=== PATIENT | female | born 1945 | race Asian ===

== ENCOUNTER → 2016-10-14 | Outpatient (CLI) | payer OTHER ==
[~2016-10-14] MED LIST: AMLODIPINE BES2.5 M1 PO; ANASTROZOLE1 M1 PO; ANTIVERT12.5 MG PO; ASPIR LOW81 MG PO; CIPRO500 MG PO; COZ50 PO; COZAAR100 MG PO; FUROSEMIDE20 MG PO; GEMFIBROZIL600 MG PO; GLYBURIDE AND M1 TA1 PO; GLYBURIDE5 MG PO; GOOD SENSE ASPI81 M3 PO; LAC PO; METFORMIN HCL1000 MG PO; METOPROLOL TART25 M1 PO; MULTI-VITAMINS1 TAB PO; TAMOXIFEN CITRA20 MG PO; TOP50 PO
== END | disposition home or self-care (01) ==
LOC: MA 12:54
PROC: BH00ZZZ Plain Radiography of Right Breast (ICD-10-PCS; principal; 2016-10-14)
DX: Z12.31 Encounter for screening mammogram for malignant neoplasm of breast (principal); C50.919 Malignant neoplasm of unspecified site of unspecified female breast
CPT/HCPCS: G0206

== ENCOUNTER 2016-10-20 19:49 | Inpatient (IN) | payer OTHER ==
[~2016-10-20] VITALS: Ht 152.4 cm; Wt 60.3 kg
[~2016-10-20 19:49] MED LIST changes: -AMLODIPINE BES2.5 M1 PO; -ANASTROZOLE1 M1 PO; -ASPIR LOW81 MG PO; -CIPRO500 MG PO; -GLYBURIDE5 MG PO; -LAC PO; -METFORMIN HCL1000 MG PO; -MULTI-VITAMINS1 TAB PO; -TOP50 PO
[2016-10-20 20:34] LABS: BASOPHIL % 0.4 % (0-2); PLATELET COUNT 361 x10^3mcL (130-400); RED CELL DISTRIBUTION WIDTH 12.9 % (11.5-14.5)
[2016-10-20 20:49] LABS: CARBON DIOXIDE 28.4 mmol/L (21-32); CHLORIDE SERUM 103 mmol/L (98-107); CREATININE SERUM 0.9 mg/dL (0.6-1.0); GFR1 > 60 mL/min; GLUCOSE SERUM 145 mg/dL (74-106); POTASSIUM SERUM 3.6 mmol/L (3.5-5.1); SODIUM SERUM 141 mmol/L (136-145)
[2016-10-20 20:54] LABS: ALBUMIN 4.2 g/dL (3.4-5.0); ALKALINE PHOSPHATASE 57 U/L (46-116); ALT/SGPT 24 U/L (14-59); AST/SGOT 18 U/L (15-37); BILIRUBIN TOTAL 0.34 mg/dL (0.20-1.00); TOTAL PROTEIN, SERUM 8.1 g/dL (6.4-8.2)
[2016-10-20 22:16] LABS: UA SPECIFIC GRAVITY >=1.030 (1.005-1.035); microscopic required? YES; urine erythrocyte NEGATIVE (NEGATIVE)
[2016-10-20 22:51] LABS: CK-MB 0.9 ng/mL (0-3.6)
[2016-10-20] MEDS ORDERED: GLYBURIDE5 MG PO (23:45)
[2016-10-20] MEDS ORDERED: METFORMIN HCL1000 MG PO (23:45)
[2016-10-20] MEDS ORDERED: ASPIR LOW81 MG PO (23:46)
[2016-10-20] MEDS ORDERED: AMLODIPINE BES2.5 M1 PO (23:46)
[2016-10-20] MEDS ORDERED: MULTI-VITAMINS1 TAB PO (23:46)
[2016-10-20] MEDS ORDERED: ANASTROZOLE1 M1 PO (23:46)
[2016-10-21] VITALS (8 sets, daily range): BP systolic 125–182; BP diastolic 56–72
[2016-10-21 00:46] LABS: T3 TOTAL 1.14 ng/mL
[2016-10-21 00:53] LABS: CHOLESTEROL/HDL RATIO 4.5; PHOSPHOROUS 4.3 mg/dL (2.5-4.9)
[2016-10-21 00:59] LABS: FREE T4 0.89 ng/dL (0.76-1.46); FREE THYROXINE INDEX 2.1 ug/dL (1.4-4.5); T4(THYROXINE) 7.1 ug/dL (4.7-13.3)
[2016-10-21 05:21] LABS: BASOPHIL % 0.3 % (0-2); PLATELET COUNT 315 x10^3mcL (130-400)
[2016-10-21 05:42] LABS: CALCIUM 8.7 mg/dL (8.5-10.1); CARBON DIOXIDE 29.2 mmol/L (21-32); CHLORIDE SERUM 106 mmol/L (98-107); CREATININE SERUM 0.6 mg/dL (0.6-1.0); GFR1 > 60 mL/min; GLUCOSE SERUM 86 mg/dL (74-106); MAGNESIUM 1.5 mg/dL (1.8-2.4); PHOSPHOROUS 3.5 mg/dL (2.5-4.9); POTASSIUM SERUM 3.7 mmol/L (3.5-5.1); SODIUM SERUM 142 mmol/L (136-145)
[2016-10-22 05:27] VITALS: BP 134/62
[2016-10-22 06:38] LABS: BASOPHIL % 0.4 % (0-2); PLATELET COUNT 325 x10^3mcL (130-400); RED CELL DISTRIBUTION WIDTH 12.9 % (11.5-14.5)
[2016-10-22 06:51] LABS: CALCIUM 8.9 mg/dL (8.5-10.1); CHLORIDE SERUM 105 mmol/L (98-107); CREATININE SERUM 0.6 mg/dL (0.6-1.0); GFR1 > 60 mL/min; GLUCOSE SERUM 120 mg/dL (74-106); MAGNESIUM 1.8 mg/dL (1.8-2.4); POTASSIUM SERUM 4.1 mmol/L (3.5-5.1); SODIUM SERUM 140 mmol/L (136-145)
[2016-10-22 08:42] VITALS: BP 147/56
[2016-10-22 09:18] VITALS: BP 167/66
[2016-10-22 13:28] VITALS: BP 121/70
[2016-10-22] MEDS ORDERED: LAC PO (16:29)
[2016-10-22] MEDS ORDERED: CIPRO500 MG PO (16:29)
[2016-10-22] MEDS ORDERED: GLYBURIDE5 MG PO (16:41)
[2016-10-22] MEDS ORDERED: TOP50 PO (16:41)
[2016-10-22 17:29] VITALS: BP 149/64
[2016-10-22 17:53] VITALS: BP 149/64
== END 2016-10-22 19:00 | disposition home or self-care (01) | DRG 308 ==
LOC: ED 19:49 → DU 23:17
PROVIDERS: Emergency Medicine; ADMIT Family Medicine
DX: R00.2 Palpitations (principal); N17.0 Acute kidney failure with tubular necrosis; N39.0 Urinary tract infection, site not specified; D68.69 Other thrombophilia; M94.0 Chondrocostal junction syndrome [Tietze]; C50.919 Malignant neoplasm of unspecified site of unspecified female breast; E11.65 Type 2 diabetes mellitus with hyperglycemia; I42.9 Cardiomyopathy, unspecified; I12.9 Hypertensive chronic kidney disease with stage 1 through stage 4 chronic kidney disease, or unspecified chronic kidney disease; N18.2 Chronic kidney disease, stage 2 (mild); Z90.5 Acquired absence of kidney; Z87.442 Personal history of urinary calculi; Z68.26 Body mass index [BMI] 26.0-26.9, adult; Z79.84 Long term (current) use of oral hypoglycemic drugs; Z79.810 Long term (current) use of selective estrogen receptor modulators (SERMs); Z90.12 Acquired absence of left breast and nipple
CPT/HCPCS: 36600; 82962; 83880; 84439; 85378; 94150; J1956; J3475; J7030; Q0092

== ENCOUNTER → 2016-10-29 | Outpatient (CLI) | payer OTHER ==
[~2016-10-29] MED LIST changes: +AMLODIPINE BES2.5 M1 PO; +ANASTROZOLE1 M1 PO; +ASPIR LOW81 MG PO; +CIPRO500 MG PO; +GLYBURIDE5 MG PO; +LAC PO; +METFORMIN HCL1000 MG PO; +MULTI-VITAMINS1 TAB PO; +TOP50 PO
--- NOTE | 2016-10-29 14:05 | NUR ---
CARDIOLITE STRESS COMPLETED
== END | disposition home or self-care (01) ==
LOC: CA 10:03 → RD 12:30 → CA 12:30
DX: R00.2 Palpitations (principal)
CPT/HCPCS: A9500

== ENCOUNTER → 2016-12-17 | Day surgery (SDC) | payer OTHER ==
[2016-12-16 08:17] LABS: PLATELET COUNT 365 x10^3mcL (130-400); RED CELL DISTRIBUTION WIDTH 13.5 % (11.5-14.5)
[2016-12-16 08:21] LABS: BASOPHIL % 0 % (0-2)
[2016-12-16 08:23] LABS: CALCIUM 10.1 mg/dL (8.5-10.1); CARBON DIOXIDE 28.3 mmol/L (21-32); CHLORIDE SERUM 99 mmol/L (98-107); CREATININE SERUM 0.7 mg/dL (0.6-1.0); GFR1 > 60 mL/min; GLUCOSE SERUM 160 mg/dL (74-106); POTASSIUM SERUM 4.1 mmol/L (3.5-5.1); SODIUM SERUM 139 mmol/L (136-145)
[2016-12-16 08:36] LABS: UA SPECIFIC GRAVITY 1.025 (1.005-1.035); microscopic required? YES; urine erythrocyte TRACE (NEGATIVE)
[~2016-12-17] VITALS: Ht 154.9 cm; Wt 60.3 kg
[2016-12-17 12:44] VITALS: BP 156/71
--- NOTE | 2016-12-17 14:55 | NUR ---
DISCHARGED PATIENT A/O VIA W/C AFTER RECEIVING INSTRUCTIONS WITH VERBAL RESPONSE OF UNDERSTANDING. CASE CANCELLED TODAY AND RE-SCHEDULED FOR FRIDAY PER DR. LESLIE. DENIES CHEST PAIN THIS SHIFT. RESP. REG. AND EVEN WITH OUT DISTRESS NOTED. INFORMED PATIENT ON PRE-OP INSTRUCTIONS FOR FRIDAY PROIR TO DISCHARGE WITH VERBAL RESPONSE OF UNDERSTANDING. NO C/O OR DISTRESS NOTED.
== END | disposition home or self-care (01) ==
LOC: DS 11:45 → OR 13:30
PROVIDERS: Internal Medicine Interventional Cardiology
DX: R07.9 Chest pain, unspecified (principal); E11.9 Type 2 diabetes mellitus without complications; I10 Essential (primary) hypertension; Z53.9 Procedure and treatment not carried out, unspecified reason
CPT/HCPCS: C1769; C1887; C1894; J1644; J2001; J3490; J7040; Q9967

== ENCOUNTER → 2016-12-19 | Day surgery (SDC) | payer OTHER ==
[~2016-12-19] VITALS: Ht 154.9 cm; Wt 59.9 kg
[2016-12-19] VITALS (13 sets, daily range): BP systolic 106–144; BP diastolic 54–90
--- NOTE | 2016-12-19 13:22 | NUR ---
1210 PATIENT ARRIVES TO UNIT AMBULATORY AND AWAKE AND ORIENTED X4. PATIENT ACCOMPANIED BY SON. PATIENT PROVIDED TEACHING REGARDING PLAN OF CARE AND VERBALIZED UNDERSTANDING. VSS. PERIPHERAL IV INITIATED TO RFA. NO INFILTRATION OR PHLEBITIS NOTED. ALL NEEDS MET. CALL LIGHT WITHIN REACH. WILL CONTINUE TREATMENT PLAN.
--- NOTE | 2016-12-19 13:24 | NUR ---
1310 PATIENT TRANSPORTED TO TERRITORY BUSINESS MANAGER AT THIS TIME FOR PROCEDURE VIA GURNEY AND ACCOMPANIED BY TERRITORY BUSINESS MANAGER RN AND TECH. PATIENT ALERT AND AWAKE AND ABLE TO MAKE NEEDS KNOWN. NO SOB NOTED. DENIES ANY DISTRESS. SAFETY AND COMFORT MEASURES IN PLACE. WILL CONTINUE TO MONITOR.
--- NOTE | 2016-12-19 15:25 | NUR ---
1515 PATIENT RECEIVED BACK TO UNIT VIA GURNEY AND ACCOMPANIED BY HOTHOUSE WORKER RNS. PATIENT ALERT AND AWAKE AND ABLE TO MAKE ALL NEEDS KNOWN. NO SOB NOTED. RESPIRATIONS EVEN AND UNLABORED. DENIES ANY PAIN OR DISTRESS AT THIS TIME. PATIENT NOTED WITH TR BAND TO R WRIST. PATIENT WITH SON AT BEDSIDE. VSS. BEDSIDE ENDORSEMENT RECEIVED. PATIENT MADE COMFORTABLE. COMFORT AND SAFETY MEASURES IN PLACE. CALL LIGHT WITHIN REACH. WILL CONTINUE TO MONITOR. 1530 PATIENT SEEN AND EXAMINED BY DR. LESLIE. PATIENT AND SON PROVIDED TEACHING REGARDING DISCHARGE PLAN OF CARE AND FOLLOW UP APPOINTMENT. PATIENT AND SON VERBALIZED UNDERSTANDING. ALL NEEDS MET. CALL LIGHT WITHIN REACH. WILL CONTINUE TREATMENT PLAN.
--- NOTE | 2016-12-19 15:51 | NUR ---
1545 PATIENT ADMINISTERED PLAAVIX 300MG PO X1 PER MD ORDERS. PATIENT TOLERATED WITH NO COMPLAINTS. ALL NEEDS MET. CALL LIGHT WITHIN REACH. WILL CONTINUE TREATMENT PLAN.
--- NOTE | 2016-12-19 16:44 | NUR ---
1530 NEW VERBAL ORDER RECEIVED FROM DR. LESLIE TO CHANGE DISCHARGE TIME FROM 1900 TO 1800 PER CNO REQUEST. NOTED AND CARRIED OUT. PATIENT AND SON MADE AWARE. VERBALIZED UNDERSTANDING. ALL NEEDS MET. WILL CONTINUE TO MONITOR.
--- NOTE | 2016-12-19 17:14 | NUR ---
1700 REMOVED 7MLS OF AIR FROM TR BAND AT RIGHT WRIST INCISION SITE AT THIS TIME. NO BLEEDING NOTED. PATIENT TOLERATED WELL WITH NO COMPLAINTS. WILL CONTINUE TO MONITOR. 1705 NO BLEEDING NOTED FROM R WRIST INCISION SITE AT THIS TIME. REMOVAL OF THE REST OF THE AIR FROM TR BAND AT THIS TIME. TR BAND REMOVED WITH BANDAID DRESSING PLACED TO R WRIST INCISION SITE. DRESSING C/D/I. PATIENT AND SON PROVIDED FURTHER TEACHING. BOTH VERBALIZED UNDERSTANDING. ALL NEEDS MET. CALL LIGHT WITHIN REACH. WILL CONTINUE TO MONITOR.
--- NOTE | 2016-12-19 18:04 | NUR ---
1800 PATIENT ALERT AND AWAKE AND ABLE TO MAKE ALL NEEDS KNOWN. NO SOB NOTED. RESPIRATIONS EVEN AND UNLABORED. DENIES ANY PAIN OR DISTRESS AT THIS TIME. DRESSING TO R WRIST REMAINS C/D/I. R WRIST REMAINS IN WRIST IMMOBILIZER. PERIPHERAL IV REMOVED TO RFA WITH CATHETER INTACT. NO BLEEDING OR PAIN AT SITE NOTED. PATIENT AND SON PROVIDED CONTINUED TEACHING REGARDING DISCHARGE PLAN OF CARE AND VERBALIZED UNDERSTANDING. PATIENT TRANSPORTED VIA WHEELCHAIR TO PRIVATE VEHICLE AT THIS TIME FOR DISCHARGE HOME ACCOMPANIED BY RN AND SON. ALL NEEDS MET.
== END | disposition home or self-care (01) ==
LOC: DS 12:03 → OR 13:30
PROVIDERS: Internal Medicine Interventional Cardiology
PROC: B2111ZZ Fluoroscopy of Multiple Coronary Arteries using Low Osmolar Contrast (ICD-10-PCS; 2016-12-19)
PROC: B2151ZZ Fluoroscopy of Left Heart using Low Osmolar Contrast (ICD-10-PCS; 2016-12-19)
PROC: 4A023N7 Measurement of Cardiac Sampling and Pressure, Left Heart, Percutaneous Approach (ICD-10-PCS; principal; 2016-12-19 13:30)
DX: I25.119 Atherosclerotic heart disease of native coronary artery with unspecified angina pectoris (principal); I10 Essential (primary) hypertension; E11.9 Type 2 diabetes mellitus without complications
CPT/HCPCS: CLHCL; C1769; C1887; C1894; J1644; J2001; J2250; J3010; J3490; J7030; Q9967

== ENCOUNTER → 2017-01-24 | Outpatient (CLI) | payer OTHER | LOC: US 14:49 | PROC: BU4CZZZ Ultrasonography of Uterus and Ovaries (ICD-10-PCS; principal; 2017-01-24) | DX: Z09 Encounter for follow-up examination after completed treatment for conditions other than malignant neoplasm (principal); D25.9 Leiomyoma of uterus, unspecified ==

== ENCOUNTER → 2017-10-15 | Outpatient (CLI) | payer OTHER | END | disposition home or self-care (01) | LOC: MA 15:12 | PROC: BH00ZZZ Plain Radiography of Right Breast (ICD-10-PCS; principal; 2017-10-15) | DX: C50.912 Malignant neoplasm of unspecified site of left female breast (principal); Z17.0 Estrogen receptor positive status [ER+] | CPT/HCPCS: 77065 ==

== ENCOUNTER → 2017-10-27 | Outpatient (CLI) | payer OTHER | END | disposition home or self-care (01) | LOC: LB 07:19 | DX: C50.912 Malignant neoplasm of unspecified site of left female breast (principal); Z17.0 Estrogen receptor positive status [ER+] | CPT/HCPCS: 86300 ==

== ENCOUNTER 2018-02-17 19:44 | Emergency (ER) | payer OTHER ==
[2018-02-17 21:37] VITALS: BP 152/72
== END 2018-02-17 21:37 | disposition home or self-care (01) ==
LOC: ED 19:44
DX: M72.2 Plantar fascial fibromatosis (principal); I10 Essential (primary) hypertension; E11.9 Type 2 diabetes mellitus without complications; Z90.89 Acquired absence of other organs; Z90.10 Acquired absence of unspecified breast and nipple
CPT/HCPCS: Q0092

== ENCOUNTER → 2018-05-18 | Outpatient (CLI) | payer OTHER | END | disposition home or self-care (01) | LOC: LB 07:13 | DX: C50.912 Malignant neoplasm of unspecified site of left female breast (principal); Z17.0 Estrogen receptor positive status [ER+]; Z79.811 Long term (current) use of aromatase inhibitors; Z90.12 Acquired absence of left breast and nipple | CPT/HCPCS: 86300 ==

== ENCOUNTER → 2018-11-17 | Outpatient (CLI) | payer OTHER | END | disposition home or self-care (01) | LOC: MA 14:10 | PROC: BH01ZZZ Plain Radiography of Left Breast (ICD-10-PCS; principal; 2018-11-17) | DX: C50.912 Malignant neoplasm of unspecified site of left female breast (principal) | CPT/HCPCS: 77065; 86300 ==

== ENCOUNTER → 2019-02-15 | Outpatient (CLI) | payer OTHER | END | disposition home or self-care (01) | LOC: RD 14:46 | DX: Z01.818 Encounter for other preprocedural examination (principal) ==

== ENCOUNTER 2019-02-24 06:47 | Day surgery (SDC) | payer OTHER ==
[2019-02-18 08:46] LABS: ALBUMIN 3.7 g/dL (3.4-5.0); ALKALINE PHOSPHATASE 75 U/L (46-116); ALT/SGPT 24 U/L (14-59); AST/SGOT 16 U/L (15-37); BILIRUBIN DIRECT 0.12 mg/dL (0.0-0.2); BILIRUBIN TOTAL 0.5 mg/dL (0.20-1.00); CALCIUM 8.9 mg/dL (8.5-10.1); CALCIUM 9.1 mg/dL (8.5-10.1); CARBON DIOXIDE 30.2 mmol/L (21-32); CARBON DIOXIDE 31.4 mmol/L (21-32); CHLORIDE SERUM 103 mmol/L (98-107); CHLORIDE SERUM 104 mmol/L (98-107); CHOLESTEROL 157 mg/dL (<200); CHOLESTEROL/HDL RATIO 4.1; CREATININE SERUM 0.7 mg/dL (0.6-1.0); GLUCOSE SERUM 140 mg/dL (74-106); GLUCOSE SERUM 143 mg/dL (74-106); HDL CHOLESTEROL 38 mg/dL (40-60); PLATELET COUNT 335 x10^3mcL (130-400); POTASSIUM SERUM 3.6 mmol/L (3.5-5.1); POTASSIUM SERUM 3.8 mmol/L (3.5-5.1); RED CELL DISTRIBUTION WIDTH 13.2 % (11.5-14.5); SODIUM SERUM 142 mmol/L (136-145); SODIUM SERUM 143 mmol/L (136-145); TOTAL PROTEIN, SERUM 7.7 g/dL (6.4-8.2)
[2019-02-18 08:47] LABS: BASOPHIL % 0 % (0-2); TRIGLYCERIDES 397 mg/dL (<150)
[2019-02-19 10:10] LABS: microalbumin:creatinine ratio 1291.6 (0.0-30.0)
--- NOTE | 2019-02-22 15:00 | NUR ---
COPY OF PREOP LAB RESULTS REVIEWED BY ANESTHESIOLOGIST DR GORDON. NURSE TO DO BLOOD SUGAR FINGERSTICK ON ADMISSION 02-24-19. DR HARITHA RIVERA AND DR BAEZ'S OFFICE ALSO FAXED WITH RESULTS.
--- NOTE | 2019-02-22 16:46 | NUR ---
SPOKE WITH NIKKY AT DR BAEZ'S OFFICE. AWARE OF RESULTS. NO FURTHER ORDERS AT THIS TIME. OK FOR SURGERY.
[~2019-02-24] VITALS: Ht 154.9 cm; Wt 59.9 kg
[2019-02-24 07:59] VITALS: BP 145/74
[2019-02-24 13:46] VITALS: BP 145/78
== END 2019-02-24 13:40 | disposition home or self-care (01) ==
LOC: DS 06:47
PROVIDERS: Ophthalmology
DX: E11.36 Type 2 diabetes mellitus with diabetic cataract (principal); H25.11 Age-related nuclear cataract, right eye; M19.90 Unspecified osteoarthritis, unspecified site; K21.9 Gastro-esophageal reflux disease without esophagitis; J45.909 Unspecified asthma, uncomplicated; I12.9 Hypertensive chronic kidney disease with stage 1 through stage 4 chronic kidney disease, or unspecified chronic kidney disease; E11.22 Type 2 diabetes mellitus with diabetic chronic kidney disease; N18.9 Chronic kidney disease, unspecified; D64.9 Anemia, unspecified; F03.90 Unspecified dementia, unspecified severity, without behavioral disturbance, psychotic disturbance, mood disturbance, and anxiety; Z79.82 Long term (current) use of aspirin; Z79.899 Other long term (current) drug therapy; Z79.01 Long term (current) use of anticoagulants; Z79.84 Long term (current) use of oral hypoglycemic drugs; Z87.442 Personal history of urinary calculi; Z85.3 Personal history of malignant neoplasm of breast; Z87.59 Personal history of other complications of pregnancy, childbirth and the puerperium; Z90.5 Acquired absence of kidney; Z90.12 Acquired absence of left breast and nipple; Z98.890 Other specified postprocedural states
CPT/HCPCS: 82962; C1780; J2001; J2704; J3010; J7040

== ENCOUNTER → 2019-04-08 | Day surgery (SDC) | payer OTHER ==
[2019-04-01 07:29] LABS: BASOPHIL % 0.3 % (0-2); PLATELET COUNT 325 x10^3mcL (130-400); RED CELL DISTRIBUTION WIDTH 13.3 % (11.5-14.5)
[2019-04-01 07:54] LABS: ALBUMIN 3.9 g/dL (3.4-5.0); ALKALINE PHOSPHATASE 63 U/L (46-116); ALT/SGPT 3 U/L (14-59); AST/SGOT 18 U/L (15-37); BILIRUBIN TOTAL 0.54 mg/dL (0.20-1.00); CALCIUM 9.5 mg/dL (8.5-10.1); CARBON DIOXIDE 30.5 mmol/L (21-32); CHLORIDE SERUM 103 mmol/L (98-107); CREATININE SERUM 0.7 mg/dL (0.6-1.0); GLUCOSE SERUM 108 mg/dL (74-106); POTASSIUM SERUM 3.9 mmol/L (3.5-5.1); SODIUM SERUM 142 mmol/L (136-145)
[~2019-04-08] VITALS: Ht 154.9 cm; Wt 59.4 kg
[2019-04-08 07:25] VITALS: BP 145/65
[2019-04-08 14:03] VITALS: BP 148/59
== END | disposition home or self-care (01) ==
LOC: DS 04-01 06:46
PROVIDERS: Ophthalmology
DX: E11.36 Type 2 diabetes mellitus with diabetic cataract (principal); H25.12 Age-related nuclear cataract, left eye; E66.3 Overweight; Z79.84 Long term (current) use of oral hypoglycemic drugs; Z79.899 Other long term (current) drug therapy; Z68.24 Body mass index [BMI] 24.0-24.9, adult; M19.90 Unspecified osteoarthritis, unspecified site; Z87.442 Personal history of urinary calculi; Z98.891 History of uterine scar from previous surgery; Z98.41 Cataract extraction status, right eye; Z90.12 Acquired absence of left breast and nipple
CPT/HCPCS: 82962; C1780; J0171; J2001; J7040

== ENCOUNTER → 2019-05-17 | Outpatient (CLI) | payer OTHER | END | disposition home or self-care (01) | LOC: LB 14:44 | DX: C50.912 Malignant neoplasm of unspecified site of left female breast (principal); Z17.0 Estrogen receptor positive status [ER+]; Z79.811 Long term (current) use of aromatase inhibitors; Z90.12 Acquired absence of left breast and nipple | CPT/HCPCS: 86300 ==

== ENCOUNTER → 2020-01-24 | Outpatient (CLI) | payer OTHER | END | disposition home or self-care (01) | LOC: MA 01-05 15:00 | PROC: BH00ZZZ Plain Radiography of Right Breast (ICD-10-PCS; principal; 2020-01-24) | DX: C50.912 Malignant neoplasm of unspecified site of left female breast (principal); R92.8 Other abnormal and inconclusive findings on diagnostic imaging of breast | CPT/HCPCS: 77065; 86300 ==

== ENCOUNTER → 2020-07-26 | Outpatient (CLI) | payer OTHER | END | disposition home or self-care (01) | LOC: LB 15:24 | DX: C50.912 Malignant neoplasm of unspecified site of left female breast (principal) ==